=== PATIENT | male | born 1990 | race Hispanic/Latino ===

== ENCOUNTER 2018-04-08 19:30 | Outpatient (CLI) | payer BC | END 2018-04-08 19:31 | disposition home or self-care (01) | LOC: SLEEPLAB 19:30 | PROVIDERS: ATTEND Family Medicine | DX: G47.30 Sleep apnea, unspecified (principal); G47.00 Insomnia, unspecified; G47.10 Hypersomnia, unspecified; R09.89 Other specified symptoms and signs involving the circulatory and respiratory systems; G47.33 Obstructive sleep apnea (adult) (pediatric); Z68.41 Body mass index [BMI] 40.0-44.9, adult | CPT/HCPCS: 95811 ==

== ENCOUNTER 2022-03-11 22:49 | Observation (INO) | payer BC ==
[2022-03-12] MEDS ORDERED: Morphine 4 MG/ML VIAL SLOW IVP PRN (01:39)
[2022-03-12 02:12] VITALS: BMI 45.0
[2022-03-12] MEDS: Sodium Chloride 0.9% 1,000 ML IV SCH ×3 (02:50→20:12)
[2022-03-12] MEDS ORDERED: Acetaminophen 650 MG Suppository PR PRN (04:01)
[2022-03-12] MEDS ORDERED: Ondansetron ODT 4 MG TAB PO PRN (04:01)
[2022-03-12] MEDS ORDERED: Ondansetron PF 4 MG/2 ML Vial IVP PRN (04:01)
[2022-03-12] MEDS ORDERED: Acetaminophen 325 MG TAB PO PRN (04:01)
[2022-03-12 06:15] LABS: #Eosinphils 0.1 thou/uL (0.0-0.7); #Monocytes 0.9 thou/uL (0.11-0.59); #Neutrophils 5.6 thou/uL (1.40-6.50); %Basophils 0.4 % (0.0-1.0); %Eosinophils 1.7 % (0.0-10.0); %Lymphocytes 22.6 % (21.0-51.0); %Monocytes 9.9 % (0.0-10.0); %Neutrophils 65.4 % (42.0-75.0); Mean Corpuscular HGB CONC 34.3 g/dL (32.0-36.0); Mean Corpuscular Hemoglobin 30.1 pg (27.0-31.0); Mean Corpuscular Volume 87.7 fL (78.0-98.0); Mean Platelet Volume 6.9 fL (7.4-10.4); Platelet Count 216 thou/uL (130-400); RBC Distribution Width 12.7 % (11.5-14.5); Red Blood Cell (RBC) Count 4.98 mill/uL (4.70-6.10); White Blood Cell (WBC) Count 8.6 thou/uL (4.8-10.8)
[2022-03-12 06:39] LABS: Anion Gap 12 mmol/L (10-20); BUN (Urea Nitrogen) 21 mg/dL (8.9-20.6); Calc. Creatinine Clearance 173 mL/min (70-130); Calcium 8.7 mg/dL (7.8-10.44); Carbon Dioxide 26 mmol/L (22-29); Chloride 109 mmol/L (98-107); Estimated GFR 75; Glucose 96 mg/dL (70-105); Potassium 3.8 mmol/L (3.5-5.1); Sodium 143 mmol/L (136-145)
[2022-03-12] MEDS ORDERED: ceFAZolin 2 GM/Dextrose 50 ML 2 GM in Premix Bag 1 BAG IVPB SCH (15:45)
[2022-03-13] MEDS: Sodium Chloride 0.9% 1,000 ML IV SCH (02:49)
[2022-03-13 09:17] LABS: #Basophils 0.1 thou/uL (0.0-0.2); #Eosinphils 0.3 thou/uL (0.0-0.7); #Lymphocytes 1.6 thou/uL (1.20-3.40); #Monocytes 0.6 thou/uL (0.11-0.59); #Neutrophils 5.6 thou/uL (1.40-6.50); %Basophils 0.7 % (0.0-1.0); %Eosinophils 3.4 % (0.0-10.0); %Lymphocytes 19.6 % (21.0-51.0); %Monocytes 7.3 % (0.0-10.0); Hemoglobin 15.7 g/dL (14.0-18.0); Mean Corpuscular HGB CONC 33.9 g/dL (32.0-36.0); Mean Corpuscular Hemoglobin 29.5 pg (27.0-31.0); Mean Platelet Volume 6.9 fL (7.4-10.4); Platelet Count 230 thou/uL (130-400); RBC Distribution Width 12.7 % (11.5-14.5); Red Blood Cell (RBC) Count 5.33 mill/uL (4.70-6.10); White Blood Cell (WBC) Count 8.1 thou/uL (4.8-10.8)
[2022-03-13 09:33] LABS: Anion Gap 11 mmol/L (10-20); BUN (Urea Nitrogen) 14 mg/dL (8.9-20.6); Calc. Creatinine Clearance 198 mL/min (70-130); Carbon Dioxide 23 mmol/L (22-29); Chloride 107 mmol/L (98-107); Estimated GFR 88; Glucose 101 mg/dL (70-105); Potassium 3.7 mmol/L (3.5-5.1); Sodium 137 mmol/L (136-145)
[2022-03-13] MEDS ORDERED: Iopamidol 30 ML ONE (11:44)
[2022-03-13] MEDS ORDERED: Fentanyl 100 MCG/2 ML VIAL ONE (11:51)
[2022-03-13] MEDS ORDERED: Sodium Chloride 0.9% 100 ML ONE (11:59)
[2022-03-13] MEDS ORDERED: CEFAZOLIN 2 GM VIAL ONE (11:59)
[2022-03-13] MEDS ORDERED: Rocuronium Bromide 10 MG/ML (10ML VIAL) ONE (12:12)
[2022-03-13] MEDS ORDERED: Dexamethasone 20 MG/5 ML VIAL ONE (12:12)
[2022-03-13] MEDS ORDERED: Glycopyrrolate 0.2 MG/ML 5 ML SYRINGE ONE (12:12)
[2022-03-13] MEDS ORDERED: Lidocaine 1% PF 5 ML VIAL ONE (12:12)
[2022-03-13] MEDS ORDERED: PROPOFOL 200 MG/20 ML VIAL ONE (12:12)
[2022-03-13 17:17] VITALS: BP 134/81; TEMP 98
[2022-03-13] MEDS ORDERED: Nitrofurantoin Macrocrystal 50 MG CAP PO SCH (21:00)
[2022-03-20 12:37] LABS: CA Oxalate Dihydrate 20 % (.); CA Oxalate Monohydrate 80 % (.); Color Brown (.); Stone Weight 115 mg (.)
== END 2022-03-13 19:13 | disposition home or self-care (01) ==
LOC: T4-B 22:49
PROVIDERS: ADMIT Internal Medicine; ATTEND Internal Medicine
PROC: 0TC78ZZ Extirpation of Matter from Left Ureter, Via Natural or Artificial Opening Endoscopic (ICD-10-PCS; principal; 2022-03-13)
PROC: 0T778DZ Dilation of Left Ureter with Intraluminal Device, Via Natural or Artificial Opening Endoscopic (ICD-10-PCS; 2022-03-13)
DX: N13.2 Hydronephrosis with renal and ureteral calculous obstruction (principal); N17.9 Acute kidney failure, unspecified; D72.829 Elevated white blood cell count, unspecified; N40.0 Benign prostatic hyperplasia without lower urinary tract symptoms; G47.30 Sleep apnea, unspecified; E66.01 Morbid (severe) obesity due to excess calories; Z68.42 Body mass index [BMI] 45.0-49.9, adult; Z20.822 Contact with and (suspected) exposure to COVID-19
CPT/HCPCS: 36415; 74420; 80048; 82365; 85025; 88300; 96360; 96361; C2617; G0378; J0690; J1100; J2704; J2710; J3010; J3490; J7050; Q9967; U0003; U0005